=== PATIENT | female | born 1990 | race Caucasian/White ===

== ENCOUNTER 2019-05-30 15:41 | Inpatient (IN) ==
[2019-05-30 16:11] LABS: Basophils # 0.1 K/mcL (0.0-0.2); Basophils % 0.4 %; Eosinophils # 0.2 K/mcL (0.0-0.6); Eosinophils % 1.4 %; Hematocrit 42.3 % (35.3-44.9); Hemoglobin 13.8 g/dL (11.5-15.4); Immature Granulocytes % 0.5 % (0-4); Lymphocytes # 3.4 K/mcL (0.6-4.6); Lymphocytes % 29.9 %; Mean Corpuscular HGB Conc 32.6 g/dL (31.6-35.5); Mean Corpuscular Hemoglobin 29.2 pg (28.0-33.3); Mean Corpuscular Volume 89.4 fL (83.0-100.0); Mean Platelet Volume 11.5 fL (9.4-12.4); Monocytes # 0.7 K/mcL (0.0-1.3); Monocytes % 5.9 %; Neutrophils # 7.1 K/mcL (1.6-8.9); Platelet Count 336 K/mcL (140-400); Red Blood Count 4.73 M/mcL (3.82-4.97); Segmented Neutrophils % 61.9 %; White Blood Count 11.4 K/mcL (4.3-11.1)
[2019-05-30 16:24] LABS: Amphetamine Screen,Urine Negative ng/mL (Cutoff=1000); Barbiturate Screen,Urine Negative ng/mL (Cutoff=200); Benzodiazepines Screen,Urine Negative ng/mL (Cutoff=200); Cannabinoid Screen,Urine Negative ng/mL (Cutoff = 50); Cocaine Screen,Urine Negative ng/mL (Cutoff= 300); Opiate Screen,Urine Negative ng/mL (Cutoff=300); Phencyclidine Screen,Urine Negative ng/mL (Cutoff=25)
[2019-05-30 16:24] LABS: Bilirubin,Urine Negative (Negative); Blood,Urine Negative (Negative); Clarity,Urine Clear (Clear); Color,Urine Yellow (Yellow); Glucose,Urine (UA) Normal (Normal); Ketones,Urine Negative (Negative); Leukocyte Esterase,Urine Negative (Negative); Nitrite,Urine Negative (Negative); PH,Urine 6.5 pH Units (5.0-8.0); Protein,Urine Negative (Neg-Trace); Specific Gravity,Urine 1.012 (1.010-1.025); Urobilinogen,Urine Normal (Normal)
[2019-05-30 16:35] LABS: Acetaminophen < 10 mcg/mL (10-20); BUN/Creatinine Ratio 16 (6-26); Blood Urea Nitrogen 9 mg/dL (6-20); Calcium 9.3 mg/dL (8.6-10.3); Carbon Dioxide 24 mEq/L (23-29); Chloride 105 mEq/L (98-107); Ethanol < 10 mg/dL (Less than 10); Glucose 89 mg/dL (70-105); Osmolality,Calculated 282 (280-300); Potassium 3.9 mEq/L (3.5-5.1); Salicylate < 2.5 mg/dL (15.0-30.0); Sodium 137 mEq/L (136-145); eGFR For African Americans > 60 (> 60); eGFR For Non-African Americans > 60 (> 60)
[2019-05-30] MEDS ORDERED: Mag Hydrox/Al Hydrox/Simeth 30 ML UDC PO PRN (18:51)
[2019-05-30] MEDS ORDERED: *HR* LORazepam 1 MG TABLET PO PRN (18:51)
[2019-05-30] MEDS ORDERED: Haloperidol Lactate 5 MG/ML VIAL IM PRN (18:51)
[2019-05-30] MEDS ORDERED: Acetaminophen 325 MG TABLET PO PRN (18:51)
[2019-05-30] MEDS ORDERED: MOM Conc 10 ML UD.LIQ PO PRN (18:51)
[2019-05-30] MEDS ORDERED: *HR* LORazepam 2 MG/ML VIAL IM PRN (18:51)
[2019-05-31] MEDS ORDERED: FLUoxetine 20 MG CAPSULE PO ONE (09:04)
[2019-05-31] MEDS: traZODone 50 MG TABLET PO PRN (22:11)
[2019-05-31] MEDS: hydrOXYzine pamoate 25 MG CAPSULE PO PRN (22:11)
[2019-06-01] MEDS: FLUoxetine 20 MG CAPSULE PO SCH (08:43)
[2019-06-01] MEDS: hydrOXYzine pamoate 25 MG CAPSULE PO PRN (20:50)
[2019-06-01] MEDS: traZODone 50 MG TABLET PO PRN (20:50)
[2019-06-02] MEDS: FLUoxetine 20 MG CAPSULE PO SCH (08:38)
[2019-06-02 09:22] VITALS: BP 133/86
== END 2019-06-02 11:25 | disposition home or self-care (01) | DRG 885 ==
LOC: EMEROOARM 15:41 → 1ANU 18:48
PROVIDERS: ADMIT Psychiatry & Neurology Psychiatry; ATTEND Psychiatry & Neurology Psychiatry